=== PATIENT | male | born 1980 | race Caucasian/White ===

== ENCOUNTER 2016-11-19 22:28 | Emergency (ER) | payer SELFPAY ==
[~2016-11-19 22:28] MED LIST: DILAUDID4 MG OR; FLEXERIL OR; NAPROSYN500 MG PO; NO CURRENT MEDS; ROXICODONE15 MG OR; ULTRAM50 M1 OR
== END 2016-11-19 23:07 | disposition left against medical advice (07) | DRG 951 ==
LOC: ED 22:28 → LWOBS 23:07
DX: Z91.19 Patient's noncompliance with other medical treatment and regimen (principal)

== ENCOUNTER 2016-11-22 17:20 | Emergency (ER) | payer SELFPAY ==
[~2016-11-22] VITALS: Ht 180.3 cm; Wt 68.0 kg
[2016-11-22 18:49] LABS: HEMATOCRIT 44.8 % (39.0-50.0); HEMOGLOBIN 15.2 g/dl (14.0-18.0); IMMATURE GRANULOCYTES 0.2 % (0.0-1.0); MEAN CELL VOLUME 90.9 fL CALC (80.0-100.0); MEAN CORPUSCULAR HGB 30.8 pG CALC (26.0-32.0); MEAN CORPUSCULAR HGB CONC 33.9 g/L CALC (32.0-36.0); NEUT# 6.77 thou/uL (1.82-7.42); RED BLOOD COUNT 4.93 mill/uL (4.70-6.10); RED CELL DISTRI WIDTH 12.1 % (11.5-15.5)
[2016-11-22 18:54] LABS: ALBUMIN 5.1 g/dL (3.2-5.0); ALKALINE PHOSPHATASE 78 u/l (38-126); AMYLASE 307 u/l (30-110); ANION GAP 16 (6-22 (CALC)); BILIRUBIN, TOTAL 0.4 mg/dL (0.0-1.4); BUN 17 mg/dL (9-20); BUN/CREATININE RATIO 18 (12-20 (CALC)); CALCIUM 9.4 mg/dL (8.4-10.2); CARBON DIOXIDE 29 mmol/l (22-30); CHLORIDE 102 mmol/l (95-108); GFR > 60 ML/MIN (>=60 (CALC)); GFR FOR AFR.AMER. > 60 ML/MIN (>=60 (CALC)); GLUCOSE 92 mg/dL (75-110); LIPASE 1388 u/l (23-300); POTASSIUM 3.8 mmol/l (3.5-5.1); SGOT/AST 34 u/l (17-59); SGPT/ALT 35 u/l (21-72); SODIUM 143 mmol/l (137-146); TOTAL PROTEIN 8.8 g/dL (6.3-8.2)
[2016-11-22 19:54] VITALS: BP 117/69
== END 2016-11-22 19:54 | disposition home or self-care (01) | DRG 440 ==
LOC: ED 17:20
PROVIDERS: Emergency Medicine
DX: K85.90 Acute pancreatitis without necrosis or infection, unspecified (principal); R50.9 Fever, unspecified; R11.2 Nausea with vomiting, unspecified; R19.7 Diarrhea, unspecified; R51 Headache

== ENCOUNTER 2017-02-04 09:29 | Emergency (ER) | payer SELFPAY ==
[~2017-02-04] VITALS: Ht 180.3 cm; Wt 59.0 kg
[2017-02-04 10:29] LABS: HEMATOCRIT 33.9 % (39.0-50.0); HEMOGLOBIN 11.5 g/dl (14.0-18.0); MEAN CELL VOLUME 87.6 fL CALC (80.0-100.0); MEAN CORPUSCULAR HGB 29.7 pG CALC (26.0-32.0); MEAN CORPUSCULAR HGB CONC 33.9 g/L CALC (32.0-36.0); NEUT# 4.18 thou/uL (1.82-7.42); RED BLOOD COUNT 3.87 mill/uL (4.70-6.10); RED CELL DISTRI WIDTH 13.4 % (11.5-15.5)
[2017-02-04 10:46] LABS: ALBUMIN 3.5 g/dL (3.2-5.0); ALKALINE PHOSPHATASE 1256 u/l (38-126); AMYLASE 49 u/l (30-110); ANION GAP 14 (6-22 (CALC)); BILIRUBIN, TOTAL 1.4 mg/dL (0.0-1.4); BUN 26 mg/dL (9-20); BUN/CREATININE RATIO 23 (12-20 (CALC)); CALCIUM 8.4 mg/dL (8.4-10.2); CARBON DIOXIDE 23 mmol/l (22-30); CHLORIDE 104 mmol/l (95-108); CREATININE 1.1 mg/dL (0.7-1.3); GFR > 60 ML/MIN (>=60 (CALC)); GFR FOR AFR.AMER. > 60 ML/MIN (>=60 (CALC)); GLUCOSE 86 mg/dL (75-110); LIPASE 50 u/l (23-300); POTASSIUM 2.8 mmol/l (3.5-5.1); SGOT/AST 126 u/l (17-59); SGPT/ALT 62 u/l (21-72); SODIUM 138 mmol/l (137-146); TOTAL PROTEIN 6.5 g/dL (6.3-8.2)
[2017-02-04 10:55] LABS: MYOGLOBIN 28 ng/mL (0 - 121)
[2017-02-04 12:24] LABS: URINE BILIRUBIN - DIPSTICK NEGATIVE (NEGATIVE); URINE BLOOD DIPSTICK NEGATIVE (NEGATIVE); URINE CLARITY CLEAR; URINE COLOR YELLOW; URINE GLUCOSE - DIPSTICK NEGATIVE (NEGATIVE); URINE KETONE NEGATIVE (NEGATIVE); URINE LEUK ESTERASE NEGATIVE (NEGATIVE); URINE NITRITE - DIPSTICK NEGATIVE (Negative); URINE PROTEIN - DIPSTICK NEGATIVE (NEG-TRACE); URINE SPECIFIC GRAVITY <=1.005; URINE UROBILINOGEN - DIPSTICK 0.2 E.U./dL (0.2)
[2017-02-04 12:55] LABS: BARBITURATES NEGATIVE (NEGATIVE); COCAINE NEGATIVE (NEGATIVE); METHADONE NEGATIVE (NEGATIVE); OXCYCODONE POSITIVE (NEGATIVE); TETRAHYDROCANNABIONOL NEGATIVE (NEGATIVE); TRICYLIC ANTIDEPRESSANTS NEGATIVE (NEGATIVE)
[2017-02-04 20:10] VITALS: BP 107/70
== END 2017-02-04 20:33 | disposition short-term general hospital (02) | DRG 871 ==
LOC: ED 09:29 → ED-I 10:47 → ED 10:47 → ED-I 15:50 → ED 20:33
PROVIDERS: Emergency Medicine
PROC: 02HV33Z Insertion of Infusion Device into Superior Vena Cava, Percutaneous Approach (ICD-10-PCS; principal; 2017-02-04)
DX: A41.9 Sepsis, unspecified organism (principal); R65.21 Severe sepsis with septic shock; F11.10 Opioid abuse, uncomplicated; G89.29 Other chronic pain; F17.210 Nicotine dependence, cigarettes, uncomplicated; Z86.711 Personal history of pulmonary embolism

== ENCOUNTER 2017-05-02 05:27 | Emergency (ER) | payer SELFPAY ==
[~2017-05-02] VITALS: Ht 170.2 cm; Wt 55.0 kg
[2017-05-02 05:59] LABS: URINE BLOOD DIPSTICK LARGE (NEGATIVE); URINE COLOR YELLOW; URINE GLUCOSE - DIPSTICK 100 mg/dL (NEGATIVE); URINE KETONE TRACE mg/dL (NEGATIVE); URINE LEUK ESTERASE TRACE (NEGATIVE); URINE PH 5.5 (4.5-8.0); URINE PROTEIN - DIPSTICK >=300 mg/dL (NEG-TRACE); URINE SPECIFIC GRAVITY >=1.030
[2017-05-02 06:25] LABS: URINE CLARITY CLOUDY; URINE NITRITE - DIPSTICK POSITIVE (Negative)
[2017-05-02 06:27] LABS: URINE BILIRUBIN - DIPSTICK TRACE (NEGATIVE); URINE RBC TNTC RBC/hpf (0-5)
[2017-05-02 06:28] LABS: URINE BACTERIA FEW hpf; URINE SQUAMOUS EPITHELIAL CELL FEW EPI/hpf (0-FEW)
[2017-05-02] MEDS ORDERED: CIPROFLOXACN500 MG PO (06:37)
[2017-05-02 06:50] VITALS: BP 112/66
== END 2017-05-02 06:54 | disposition home or self-care (01) | DRG 690 ==
LOC: ED 05:27
PROVIDERS: Emergency Medicine
DX: N39.0 Urinary tract infection, site not specified (principal); B95.61 Methicillin susceptible Staphylococcus aureus infection as the cause of diseases classified elsewhere; R81 Glycosuria; R30.0 Dysuria

== ENCOUNTER 2017-07-25 17:19 | Emergency (ER) | payer SELFPAY ==
[~2017-07-25] VITALS: Ht 170.2 cm; Wt 70.2 kg
[~2017-07-25 17:19] MED LIST changes: +CIPROFLOXACN500 MG PO
[2017-07-25 19:22] LABS: HEMATOCRIT 38.3 % (39.0-50.0); HEMOGLOBIN 12.6 g/dl (14.0-18.0); IMMATURE GRANULOCYTES 0.3 % (0.0-1.0); MEAN CELL VOLUME 88.2 fL CALC (80.0-100.0); MEAN CORPUSCULAR HGB CONC 32.9 g/L CALC (32.0-36.0); NEUT# 3.48 thou/uL (1.82-7.42); RED BLOOD COUNT 4.34 mill/uL (4.70-6.10); RED CELL DISTRI WIDTH 13.7 % (11.5-15.5)
[2017-07-25 19:36] LABS: ALBUMIN 4.4 g/dL (3.2-5.0); ALKALINE PHOSPHATASE 79 u/l (38-126); ANION GAP 18 (6-22 (CALC)); BILIRUBIN, TOTAL 0.3 mg/dL (0.0-1.4); BUN 13 mg/dL (9-20); BUN/CREATININE RATIO 17 (12-20 (CALC)); CARBON DIOXIDE 27 mmol/l (22-30); CHLORIDE 104 mmol/l (95-108); CREATININE 0.7 mg/dL (0.7-1.3); GFR > 60 ML/MIN (>=60 (CALC)); GFR FOR AFR.AMER. > 60 ML/MIN (>=60 (CALC)); POTASSIUM 4.5 mmol/l (3.5-5.1); SGOT/AST 34 u/l (17-59); SGPT/ALT 106 u/l (21-72); SODIUM 145 mmol/l (137-146); TOTAL PROTEIN 7.6 g/dL (6.3-8.2)
[2017-07-25] MEDS ORDERED: KEFLEX500 MG PO (20:02)
[2017-07-25 20:17] VITALS: BP 140/68
== END 2017-07-25 20:18 | disposition home or self-care (01) | DRG 138 ==
LOC: ED 17:19
PROVIDERS: Emergency Medicine
PROC: 0CQ00ZZ Repair Upper Lip, Open Approach (ICD-10-PCS; principal; 2017-07-25)
DX: S01.511A Laceration without foreign body of lip, initial encounter (principal); Y04.0XXA Assault by unarmed brawl or fight, initial encounter; Y93.89 Activity, other specified; Y92.410 Unspecified street and highway as the place of occurrence of the external cause

== ENCOUNTER 2017-08-12 08:24 | Emergency (ER) | payer SELFPAY ==
[~2017-08-12] VITALS: Ht 170.2 cm; Wt 68.0 kg
[~2017-08-12 08:24] MED LIST changes: +KEFLEX500 MG PO
[2017-08-12 09:40] LABS: HEMATOCRIT 39.1 % (39.0-50.0); HEMOGLOBIN 13.2 g/dl (14.0-18.0); IMMATURE GRANULOCYTES 0.3 % (0.0-1.0); MEAN CELL VOLUME 85.4 fL CALC (80.0-100.0); MEAN CORPUSCULAR HGB 28.8 pG CALC (26.0-32.0); MEAN CORPUSCULAR HGB CONC 33.8 g/L CALC (32.0-36.0); NEUT# 6.03 thou/uL (1.82-7.42); RED BLOOD COUNT 4.58 mill/uL (4.70-6.10); RED CELL DISTRI WIDTH 14.3 % (11.5-15.5)
[2017-08-12 09:48] LABS: ALBUMIN 4.5 g/dL (3.2-5.0); ALKALINE PHOSPHATASE 129 u/l (38-126); ANION GAP 18 (6-22 (CALC)); BILIRUBIN, TOTAL 1.1 mg/dL (0.0-1.4); BUN 15 mg/dL (9-20); BUN/CREATININE RATIO 18 (12-20 (CALC)); CARBON DIOXIDE 26 mmol/l (22-30); CHLORIDE 99 mmol/l (95-108); CREATININE 0.9 mg/dL (0.7-1.3); GFR > 60 ML/MIN (>=60 (CALC)); GFR FOR AFR.AMER. > 60 ML/MIN (>=60 (CALC)); POTASSIUM 3.8 mmol/l (3.5-5.1); SGOT/AST 52 u/l (17-59); SGPT/ALT 135 u/l (21-72); SODIUM 139 mmol/l (137-146); TOTAL PROTEIN 8.3 g/dL (6.3-8.2)
[2017-08-12] MEDS ORDERED: ULTRAM50 M1 PO (10:38)
[2017-08-12] MEDS ORDERED: AMOX/K CLAV875 M1 PO (10:38)
[2017-08-12 10:50] VITALS: BP 135/77
== END 2017-08-12 11:29 | disposition home or self-care (01) | DRG 603 ==
LOC: ED 08:24
PROVIDERS: Emergency Medicine
DX: L03.115 Cellulitis of right lower limb (principal); M79.604 Pain in right leg; R22.41 Localized swelling, mass and lump, right lower limb

== ENCOUNTER 2022-08-01 19:02 | Emergency (ER) | payer BC, MEDICAID ==
[~2022-08-01] VITALS: Ht 170.2 cm; Wt 75.0 kg
[~2022-08-01 19:02] MED LIST changes: +AMOX/K CLAV875 M1 PO; +ULTRAM50 M1 PO
[2022-08-01 20:34] LABS: BASO% 0.1 % (0-3); EOS% 0.2 % (0-8); IMMATURE GRANULOCYTES 0.7 % (0.0-5.0); LYMPH% 5.4 % (15-41); MEAN CELL VOLUME 87.4 fL CALC (80.0-100.0); MEAN CORPUSCULAR HGB 27.9 pG CALC (26.0-32.0); MEAN CORPUSCULAR HGB CONC 31.9 g/dL CAL (32.0-36.0); MONO% 14.1 % (2-13); NEUT# 12.9 thou/uL (1.82-7.42); NEUT% 79.5 % (42-76); RED BLOOD COUNT 4.27 mill/uL (4.70-6.10); RED CELL DISTRI WIDTH 12.4 % (11.5-15.5)
[2022-08-01 20:36] LABS: HEMATOCRIT 37.3 % (39.0-50.0); HEMOGLOBIN 11.9 g/dl (14.0-18.0)
[2022-08-01 20:51] LABS: ALBUMIN 4.1 g/dL (3.2-5.0); ALKALINE PHOSPHATASE 68 u/l (38-126); BILIRUBIN, TOTAL 0.6 mg/dL (0.2-1.3); BUN 13 mg/dL (9-20); BUN/CREATININE RATIO 16 (12-20 (CALC)); CARBON DIOXIDE 26 mmol/l (22-30); CHLORIDE 99 mmol/l (95-108); CREATININE 0.8 mg/dL (0.7-1.3); ETHYL ALCOHOL 0 mg/dl (0-30); GFR FOR AFR.AMER. > 60 ML/MIN (>=60 (CALC)); GFR OTHER RACES > 60 ML/MIN (>=60 (CALC)); SGOT/AST 76 u/l (17-59); TOTAL PROTEIN 7.4 g/dL (6.3-8.2)
[2022-08-01 20:55] LABS: ANION GAP 9 (6-22 (CALC)); POTASSIUM 3.2 mmol/l (3.5-5.1); SODIUM 131 mmol/l (137-146)
[2022-08-01 23:21] LABS: URINE BILIRUBIN - DIPSTICK NEGATIVE (NEGATIVE); URINE BLOOD DIPSTICK MODERATE (NEGATIVE); URINE CLARITY TURBID; URINE COLOR YELLOW; URINE GLUCOSE - DIPSTICK NEGATIVE (NEGATIVE); URINE KETONE TRACE mg/dL (NEGATIVE); URINE NITRITE - DIPSTICK NEGATIVE (Negative); URINE PROTEIN - DIPSTICK 30 mg/dL (NEG-TRACE); URINE SPECIFIC GRAVITY >=1.030; URINE UROBILINOGEN - DIPSTICK 0.2 E.U./dL (0.2)
[2022-08-01 23:31] LABS: URINE LEUK ESTERASE NEGATIVE (Negative)
[2022-08-01 23:33] LABS: URINE EPITHELIAL CELLS FEW EPI/hpf (0-FEW)
[2022-08-01 23:34] LABS: URINE BACTERIA MANY hpf
[2022-08-01 23:35] LABS: URINE YEAST MODERATE hpf
[2022-08-02 00:41] VITALS: BP 101/64
== END 2022-08-02 01:27 | DRG 999 ==
LOC: ED 19:02
PROVIDERS: Emergency Medicine
DX: S42.001A Fracture of unspecified part of right clavicle, initial encounter for closed fracture (principal); S32.9XXA Fracture of unspecified parts of lumbosacral spine and pelvis, initial encounter for closed fracture; S06.6X0A Traumatic subarachnoid hemorrhage without loss of consciousness, initial encounter; V23.49XA Other motorcycle driver injured in collision with car, pick-up truck or van in traffic accident, initial encounter; F19.10 Other psychoactive substance abuse, uncomplicated; S82.402A Unspecified fracture of shaft of left fibula, initial encounter for closed fracture
CPT/HCPCS: Q9967

== ENCOUNTER 2024-05-07 18:49 | Emergency (ER) | payer SELFPAY ==
[~2024-05-07] VITALS: Ht 170.2 cm; Wt 74.8 kg
[2024-05-07] MEDS ORDERED: SODIUM CHLORIDE 0.9% 1,000 ML IV ONE (18:55)
[2024-05-07 19:00] VITALS: BP 142/81
[2024-05-07 19:06] LABS: BASO% 0.4 % (0-3); EOS% 0.9 % (0-8); HEMATOCRIT 39.3 % (39.0-50.0); IMMATURE GRANULOCYTES 0.1 % (0.0-5.0); LYMPH% 13.1 % (15-41); MEAN CORPUSCULAR HGB 30.4 pG CALC (26.0-32.0); MEAN CORPUSCULAR HGB CONC 33.1 g/dL CAL (32.0-36.0); MONO% 9.7 % (2-13); NEUT# 5.62 thou/uL (1.82-7.42); NEUT% 75.8 % (42-76); RED BLOOD COUNT 4.27 mill/uL (4.70-6.10); RED CELL DISTRI WIDTH 11.9 % (11.5-15.5)
[2024-05-07 19:17] LABS: ALBUMIN 4.6 g/dL (3.2-5.0); ALKALINE PHOSPHATASE 82 u/l (38-126); BILIRUBIN, TOTAL 0.5 mg/dL (0.2-1.3); BUN 11 mg/dL (9-20); BUN/CREATININE RATIO 14 (12-20 (CALC)); CARBON DIOXIDE 27 mmol/l (22-30); CHLORIDE 100 mmol/l (95-108); CREATININE 0.8 mg/dL (0.7-1.3); ESTIMATED GFR 113 ML/MIN (>=90 (CALC)); POTASSIUM 3.3 mmol/l (3.5-5.1); SGOT/AST 43 u/l (17-59); TOTAL PROTEIN 7.9 g/dL (6.3-8.2)
[2024-05-07 19:18] LABS: ANION GAP 15 (6-22 (CALC)); SODIUM 139 mmol/l (137-146)
[2024-05-07] MEDS ORDERED: POTASSIUM CHLORIDE 20 MEQ/TAB PO ONE ×2 (19:30→21:55)
[2024-05-07] MEDS ORDERED: LACTATED RINGER'S 1,000 ML IV ONE (19:30)
[2024-05-07 20:30] VITALS: BP 137/92
[2024-05-07 21:01] VITALS: BP 142/80
[2024-05-07 21:32] VITALS: BP 134/79
[2024-05-07 21:59] LABS: URINE BILIRUBIN - DIPSTICK Negative (NEGATIVE); URINE BLOOD DIPSTICK Negative (NEGATIVE); URINE COLOR Yellow; URINE GLUCOSE - DIPSTICK Negative (NEGATIVE); URINE KETONE 15 mg/dL (NEGATIVE); URINE LEUK ESTERASE Negative (NEGATIVE); URINE NITRITE - DIPSTICK Negative (Negative); URINE PROTEIN - DIPSTICK Negative (NEG-TRACE); URINE UROBILINOGEN - DIPSTICK 0.2 E.U./dL (0.2)
[2024-05-07 22:26] VITALS: BP 134/79
== END 2024-05-07 22:34 | disposition home or self-care (01) | DRG 897 ==
LOC: ED 18:49
PROVIDERS: Nurse Practitioner
DX: F15.20 Other stimulant dependence, uncomplicated (principal); F17.200 Nicotine dependence, unspecified, uncomplicated; Z59.00 Homelessness unspecified

== ENCOUNTER 2024-05-21 03:45 | Emergency (ER) | payer SELFPAY ==
[~2024-05-21] VITALS: Ht 170.2 cm; Wt 81.0 kg
[2024-05-21 04:00] VITALS: BP 129/81
[2024-05-21 04:27] LABS: BASO% 0.6 % (0-3); EOS% 0.2 % (0-8); IMMATURE GRANULOCYTES 0.6 % (0.0-5.0); LYMPH% 25.5 % (15-41); MEAN CELL VOLUME 89.3 fL CALC (80.0-100.0); MEAN CORPUSCULAR HGB CONC 33.6 g/dL CAL (32.0-36.0); MONO% 10.8 % (2-13); NEUT# 3.05 thou/uL (1.82-7.42); NEUT% 62.3 % (42-76); RED BLOOD COUNT 5.07 mill/uL (4.70-6.10); RED CELL DISTRI WIDTH 12.1 % (11.5-15.5)
[2024-05-21 04:29] LABS: HEMATOCRIT 45.3 % (39.0-50.0); HEMOGLOBIN 15.2 g/dl (14.0-18.0)
[2024-05-21 04:36] LABS: ALBUMIN 5.2 g/dL (3.2-5.0); ALKALINE PHOSPHATASE 99 u/l (38-126); ANION GAP 21 (6-22 (CALC)); BUN 18 mg/dL (9-20); BUN/CREATININE RATIO 24 (12-20 (CALC)); CARBON DIOXIDE 22 mmol/l (22-30); CHLORIDE 103 mmol/l (95-108); CREATININE 0.8 mg/dL (0.7-1.3); ESTIMATED GFR 113 ML/MIN (>=90 (CALC)); POTASSIUM 4.1 mmol/l (3.5-5.1); SGOT/AST 35 u/l (17-59); SODIUM 142 mmol/l (137-146); TOTAL PROTEIN 8.8 g/dL (6.3-8.2)
[2024-05-21 04:39] LABS: INTERNATIONAL NORMALIZED RATIO 1.1 RATIO (0.7-1.3)
[2024-05-21 04:46] LABS: PROTHROMBIN TIME 11.6 SECONDS (9.0-12.5)
[2024-05-21 05:00] VITALS: BP 140/93
[2024-05-21 05:02] VITALS: BP 140/93
== END 2024-05-21 05:02 | disposition home or self-care (01) | DRG 204 ==
LOC: ED 03:45
PROVIDERS: Family Medicine
DX: R06.02 Shortness of breath (principal); Z59.00 Homelessness unspecified; F15.20 Other stimulant dependence, uncomplicated; Z86.711 Personal history of pulmonary embolism; Z86.14 Personal history of Methicillin resistant Staphylococcus aureus infection

== ENCOUNTER 2024-05-22 03:57 | Emergency (ER) | payer SELFPAY ==
[~2024-05-22] VITALS: Ht 170.2 cm; Wt 70.0 kg
[2024-05-22 04:30] VITALS: BP 153/76
[2024-05-22 04:45] VITALS: BP 140/79
[2024-05-22 05:00] VITALS: BP 130/83
[2024-05-22 05:47] LABS: URINE BLOOD DIPSTICK Negative (NEGATIVE); URINE CLARITY Clear; URINE GLUCOSE - DIPSTICK Negative (NEGATIVE); URINE KETONE 15 mg/dL (NEGATIVE); URINE LEUK ESTERASE Negative (Negative); URINE NITRITE - DIPSTICK Negative (Negative); URINE PH 5.5 (4.5-8.0); URINE PROTEIN - DIPSTICK 30 mg/dL (NEG-TRACE); URINE SPECIFIC GRAVITY 1.025; URINE UROBILINOGEN - DIPSTICK 0.2 E.U./dL (0.2)
[2024-05-22 05:51] LABS: BASO% 0.4 % (0-3); EOS% 0.1 % (0-8); HEMATOCRIT 42.7 % (39.0-50.0); IMMATURE GRANULOCYTES 0.1 % (0.0-5.0); LYMPH% 14.9 % (15-41); MEAN CELL VOLUME 92.2 fL CALC (80.0-100.0); MEAN CORPUSCULAR HGB 30.2 pG CALC (26.0-32.0); MEAN CORPUSCULAR HGB CONC 32.8 g/dL CAL (32.0-36.0); MONO% 12.7 % (2-13); NEUT# 8.18 thou/uL (1.82-7.42); NEUT% 71.8 % (42-76); RED BLOOD COUNT 4.63 mill/uL (4.70-6.10); RED CELL DISTRI WIDTH 12.5 % (11.5-15.5)
[2024-05-22 05:55] LABS: URINE BACTERIA FEW hpf; URINE COLOR Yellow; URINE EPITHELIAL CELLS FEW EPI/hpf (0-FEW); URINE RBC 0-2 RBC/hpf (0-5)
[2024-05-22 05:55] LABS: ALBUMIN 4.9 g/dL (3.2-5.0); CREATININE 0.8 mg/dL (0.7-1.3); POTASSIUM 3.3 mmol/l (3.5-5.1); TOTAL PROTEIN 8.5 g/dL (6.3-8.2)
[2024-05-22 05:56] LABS: URINE MUCUS MODERATE hpf (NONE-FEW)
[2024-05-22 06:31] VITALS: BP 130/83
== END 2024-05-22 08:00 | disposition home or self-care (01) | DRG 897 ==
LOC: ED 03:57
PROVIDERS: Emergency Medicine
DX: F15.20 Other stimulant dependence, uncomplicated (principal); R63.0 Anorexia; F17.200 Nicotine dependence, unspecified, uncomplicated; Z59.00 Homelessness unspecified; Z86.711 Personal history of pulmonary embolism; Z86.14 Personal history of Methicillin resistant Staphylococcus aureus infection

== ENCOUNTER 2024-07-22 15:52 | Emergency (ER) | payer SELFPAY ==
[~2024-07-22] VITALS: Ht 167.6 cm; Wt 66.0 kg
[2024-07-22] VITALS (12 sets, daily range): BP systolic 125–145; BP diastolic 79–96
[2024-07-22] MEDS ORDERED: SODIUM CHLORIDE 0.9% 1,000 ML IV ONE ×2 (16:15→16:20)
[2024-07-22] MEDS ORDERED: diazePAM 10 MG/2 ML VIAL IV ONE ×2 (16:20→17:15)
[2024-07-22 16:30] LABS: BASO% 0.4 % (0-3); EOS% 0.1 % (0-8); HEMATOCRIT 47.6 % (39.0-50.0); HEMOGLOBIN 15.8 g/dl (14.0-18.0); IMMATURE GRANULOCYTES 0.1 % (0.0-5.0); LYMPH% 8.1 % (15-41); MEAN CELL VOLUME 91.2 fL CALC (80.0-100.0); MEAN CORPUSCULAR HGB 30.3 pG CALC (26.0-32.0); MEAN CORPUSCULAR HGB CONC 33.2 g/dL CAL (32.0-36.0); NEUT# 14.31 thou/uL (1.82-7.42); NEUT% 85.3 % (42-76); RED BLOOD COUNT 5.22 mill/uL (4.70-6.10); RED CELL DISTRI WIDTH 12.8 % (11.5-15.5)
[2024-07-22 16:40] LABS: ALBUMIN 5.3 g/dL (3.2-5.0); BILIRUBIN, TOTAL 0.8 mg/dL (0.2-1.3); CREATININE 1.7 mg/dL (0.7-1.3); POTASSIUM 4.6 mmol/l (3.5-5.1); TOTAL PROTEIN 9.2 g/dL (6.3-8.2)
[2024-07-22 16:45] LABS: CPK 62 u/l (55-170); ETHYL ALCOHOL 0 mg/dl (0-30)
[2024-07-22 17:01] LABS: URINE BLOOD DIPSTICK Trace-intact (NEGATIVE); URINE GLUCOSE - DIPSTICK Negative (NEGATIVE); URINE KETONE Trace mg/dL (NEGATIVE); URINE LEUK ESTERASE Negative (NEGATIVE); URINE NITRITE - DIPSTICK Negative (Negative); URINE PH 5.5 (4.5-8.0); URINE PROTEIN - DIPSTICK >=300 mg/dL (NEG-TRACE); URINE SPECIFIC GRAVITY >=1.030
[2024-07-22 17:02] LABS: URINE COLOR Dark yellow; URINE RBC 0-2 RBC/hpf (0-5); URINE RENAL EPITHELIAL CELLS FEW hpf
[2024-07-22 17:03] LABS: URINE COARSE GRANULAR CAST FEW lpf; URINE HYALINE CAST MANY lpf (NONE-RARE)
== END 2024-07-22 19:45 | disposition home or self-care (01) | DRG 897 ==
LOC: ED 15:52
PROVIDERS: Emergency Medicine
DX: F15.129 Other stimulant abuse with intoxication, unspecified (principal)
CPT/HCPCS: J3360